=== PATIENT | female | born 1990 | race African-American/Black ===

== ENCOUNTER 2024-03-28 23:20 | Emergency (ER) | payer MEDICAID ==
[~2024-03-28] VITALS: Ht 157.5 cm; Wt 55.0 kg
[2024-03-28 23:23] VITALS: BP 113/62; PULSE 100; RESP 16; TEMP 98.3; O2SAT 100
[2024-03-29] MEDS ORDERED: IBUP-2029 MT (02:55)
[2024-03-29] MEDS ORDERED: ACET325T52 MT (03:56)
== END 2024-03-29 03:45 | disposition home or self-care (01) ==
LOC: ER 23:20
DX: S09.90XA Unspecified injury of head, initial encounter (principal); W19.XXXA Unspecified fall, initial encounter; Y04.0XXA Assault by unarmed brawl or fight, initial encounter; Y92.89 Other specified places as the place of occurrence of the external cause; Y99.8 Other external cause status
CPT/HCPCS: 99284